=== PATIENT | female | born 1940 | race Caucasian/White ===

== ENCOUNTER 2024-03-25 07:52 | Emergency (ER) | payer OTHER, SELFPAY ==
[2024-03-25] VITALS (8 sets, daily range): BP systolic 130–178; BP diastolic 56–87; PULSE 71; O2SAT 98; BMI 20.8
--- NOTE | 2024-03-25 08:21 | ED.GENMED ---
History of Present Illness
General
Chief Complaint: Chest Pain
Source: patient
Time Seen by Provider: 03/25/24 08:01
History of Present Illness
History of Present Illness:
84-year-old female presents to the emergency room complaining of chest pain. Patient had woken up from sleep and noted the pain. She describes that her upper chest. She did have some shortness of breath at that time but no shortness of breath on
arrival. No diaphoresis. No nausea. Patient states that she has been able to perform daily activities without any difficulty. She denies exertional chest pain.
Past History
Past History
ED Past Medical History: Hypercholesterolemia and Hypothyroidism
ED Past Surgical History: Gynecological (Hysterectomy)
Patient has exhibited threatening behavior?: No
PSI?: No
Social History
Tobacco: Non-smoker
Alcohol: Occasional
Personal:
Living: with family
Phy Exam
Physical Exam
Physical Exam:
General: Awake, Alert, Oriented X3. No acute distress.
Vitals: Mildly hypertensive
Head: Atraumatic
Eyes: Pupils equal, EOMI
Throat: Airway intact, no exudates
Neck: Trachea midline
Lungs: Clear and equal b/l
Heart: Regular rate, no murmurs
Abd: Soft, Nontender, No pulsatile mass
Neuro: Nonfocal
Skin: Warm, dry, no rash
Extremities: pulses equal b/l, no edema
Scores
Heart Score for Chest Pain Patients
STEMI patient?: No
History: Moderately Suspicious
ECG: Normal
Age: >/= 65 years
Risk Factors: 1 or 2 Risk Factors
Troponin: </= Normal Limit
Heart Score for Chest Pain Patients: 4
Heart Score Risk: 20.3% MACE over next 6 weeks
Course
Orders/Labs/Results
Orders:
Orders
03/25/24 08:07
EKG [Electrocardiogram (*1)] Urgent
Reason for Study: Chest Pain
03/25/24 08:08
EKG- Treatment ONCE
03/25/24 08:19
CMP [Comprehensive Metabolic Panel] Urgent
Complete Blood Count/With Diff Urgent
Troponin I Urgent
03/25/24 08:21
CR Chest - 2 Views Urgent
Comment:
Reason For Exam: chest pain
03/25/24 09:39
Case Management Consult ONCE
Case Management Consult: Discharge Planning
Physical Therapy Consult [Pt Eval And Treat] Urgent
Activity Level: As Tolerated
03/25/24 11:00
Walker [Treatment- Walker] ONCE
03/25/24 11:30
EKG [Electrocardiogram (*1)] Urgent
Reason for Study: Chest Pain
Comment: 2nd Troponin
EKG- Treatment ONCE
03/25/24 11:36
Troponin I Urgent
Abnormal Lab Results
03/25/24
08:19
MPV 10.5 H fL
(7.4-10.4)
Absolute Lymphs (auto) 3.8 H 10^3/uL
(1.2-3.4)
Chloride 109 H mmol/L
(98-107)
Glucose 104 H mg/dl
(70-99)
03/25/24 08:19
03/25/24 08:19
Vital Signs
Initial and Last Documented VS:
Initial Vital Signs
BP
178/72
03/25/24 07:58
Last Documented Vital Signs
Temp Pulse Resp BP Pulse Ox
98.2 F 67 18 153/70 98
03/25/24 13:44 03/25/24 13:44 03/25/24 13:44 03/25/24 13:44 03/25/24 13:44
MDM/Problems Addressed
Differential Diagnosis Includes:
ACS, nstemi, ptx,
MDM/Problems Addressed:
Patient presents after an episode of chest pain. She is pain-free at the time of my evaluation. Patient has seen Dr. Hossein Morales for cardiology in the past. Her troponins are negative x 2. No acute changes to the EKG. Patient stable for
discharge home and follow-up with cardiology as an outpatient.
*Radiology
Radiology exam reviewed: preliminary read by ED provider (No acute abnormalities on my personal review of the patient's chest x-ray)
*Pulse Oximetry
Patient hypoxic: no
*EKG
Interpreted by ED Provider?: Yes
Heart Rate: 72
Rate: normal
Rhythm: sinus
[place]: normal axis
Interval: normal interval
QRS Pattern: normal QRS
Ischemia: no ischemia
*Litigation Support Analyst Interpretation
Rate: normal
Interpretation: normal
Rhythm: sinus
*Critical Care Note
Total Time (30-74mins, 75-104mins- exclusive of procedures): Not Applicable
ED Attending Note
-
Portions of this chart may have been created with voice recognition software.� Occasional wrong word or��sound alike� substitutions may have occurred due to the inherent limitations of voice recognition software.
Discharge Plan
Departure
Patient Disposition: Home (Routine Discharge)
Date of Disposition: 03/25/24
Time of Disposition: 13:25
Patient with high blood pressure during this ER visit?: Yes
Condition: Good
Discharge Problem:
Chest pain
Instructions: Chest Pain DCA Follow Up
Prescriptions:
No Action
atorvastatin 20 MG tablet
20 mg PO DAILY@1200
Patient Comments:
07/23/21-patient knew the names of his medicaiton but not the strength called his pharmacy to verify
cholecalciferol (vitamin D3) 1,000 UNITS tablet
1,000 units PO DAILY
levothyroxine 75 MCG tablet
75 mcg PO HS
Referrals:
UNKNOWN - PT DOES,NOT KNOW [Family Provider] -
Interventions
Interventions:
*Risk Screen - Suicide Last Done: 03/25/24 07:59
*General Assessment Last Done: 03/25/24 07:59
*Neglect/Abuse Screening Last Done: 03/25/24 07:59
ED- Fall Risk Assessment Last Done: 03/25/24 07:59
*ED COVID-19 Vaccine History Last Done: 03/25/24 07:59
*Nursing Disposition Last Done: 03/25/24 13:44
ED- Cardiac Assessment Last Done: 03/25/24 08:10
Discharge Date and Time
Print Language: SINHALA
[2024-03-25 08:32] LABS: % Basophils 0.3 % (0-2); % Eosinophils 2.4 % (0-6); % Immature Granulocytes 0.2 % (0-0.5); % Lymphocytes 42.8 % (20.5-51.1); % Monocytes 6.4 % (1.7-9.3); % Neutrophils 47.9 % (42.2-75.2); Absolute Eosinophils 0.2 10^3/uL (0-0.7); Absolute Lymphocytes 3.8 10^3/uL (1.2-3.4); Absolute Monocytes 0.6 10^3/uL (0.1-0.6); Absolute Neutrophils 4.3 10^3/uL (1.4-6.5); Hematocrit 39.4 % (37.0-47.0); Hemoglobin 13.1 g/dL (12.0-16.0); Mean Corp Hgb Conc. 33.2 g/dL (33.0-37.0); Mean Corpuscular Hgb 27.7 pg (27.0-31.0); Mean Corpuscular Volume 83.3 fL (81.0-99.0); Mean Platelet Volume 10.5 fL (7.4-10.4); Nucleated Red Blood Cells % 0 %; Platelet Count 209 10^3/uL (130-400); Red Blood Cell Count 4.73 10^6/uL (4.20-5.40); Red Cell Dist. Width 13.7 % (11.5-14.5); White Blood Cell Count 8.9 10^3/uL (4.8-10.8)
--- NOTE | 2024-03-25 08:40 | EDRN ---
Patient assisted to the bathroom. Patient stated that she does not use a cane or walker at home. Patient ambulated with unsteady shuffling gait. stated that the patient has been c/o 'exhausted and weak' with any activity. stated that
the PCP gave patient a prescription for PT but the patient won't go.
[2024-03-25 08:44] LABS: ALT (SGPT) 15 U/L (0-35); AST (SGOT) 24 U/L (14-36); Albumin 4.1 g/dl (3.5-5.0); Alkaline Phosphatase 121 U/L (38-126); Blood Urea Nitrogen 16 mg/dl (7-17); Calcium 9.2 mg/dl (8.4-10.2); Carbon Dioxide 26 mmol/L (22-30); Chloride 109 mmol/L (98-107); Estimated Creatinine Clearance 52 ml/min; Glucose 104 mg/dl (70-99); Sodium 144 mmol/L (135-145); Total Bilirubin 0.7 mg/dl (0.2-1.3); Total Protein 7.1 g/dl (6.3-8.2); eGFR > 60.00
[2024-03-25 08:56] LABS: Troponin I < 0.012 ng/ml
--- NOTE | 2024-03-25 10:16 | CM ---
Addendum entered by Chandni Ramirez RN 03/25/24 10:50:
CM spoke with patient and regarding home PT services. Plan for to call [facility] PT to schedule an in home visit. CM offered VN , declined. Patient was agreeable, but needed reminders regarding why she needs PT. CM updated
bedside RN.
Original Note:
CM was consulted for discharge planning. Patient lives at [facility] with her . PT in room now assessing patient. Plan for home VN once cleared.
[2024-03-25 12:12] LABS: Troponin I < 0.012 ng/ml
--- NOTE | 2024-03-25 13:42 | EDRN ---
Reviewed discharge instructions with patient's . Verbalized understanding.
== END 2024-03-25 13:50 | disposition home or self-care (01) ==
LOC: EMR 07:52
PROVIDERS: EMERGENCY PHYSICIAN Emergency Medicine
DX: R07.89 Other chest pain (principal); R06.02 Shortness of breath; R03.0 Elevated blood-pressure reading, without diagnosis of hypertension; E78.00 Pure hypercholesterolemia, unspecified; E03.9 Hypothyroidism, unspecified; Z88.0 Allergy status to penicillin; Z91.041 Radiographic dye allergy status
CPT/HCPCS: 99285; 71046; 80053; 84484; 85025; 93005

== ENCOUNTER 2024-10-22 00:23 | Emergency (ER) | payer OTHER, SELFPAY ==
[2024-10-22 00:27] VITALS: BP 188/71; BMI 21.4
--- NOTE | 2024-10-22 00:28 | ED.GENMED ---
History of Present Illness
General
Chief Complaint: Fall
Source: patient
Exam Limitations: none
Time Seen by Provider: 10/22/24 00:26
Nursing documentation reviewed up to this point in time: agreed with
History of Present Illness
History of Present Illness:
This is a 84-year-old for female with past medical history of hyperlipidemia, dementia, hypothyroidism who presents emergency department today with concerns of headache following a fall. Patient lives at [facility] in apartment
with her . According to EMS, she is confused at baseline. She reports that she has a headache in the front of her head and states that she does remember falling but she does not remember how. called EMS and told EMS that she was
getting up in the night to go use the bathroom when she tripped and fell. reports that he was sleeping and heard 'darwin help me' when he woke up and found her lying on the ground and he subsequently called EMS. Patient denies any neck pain,
dizziness, chest pain, shortness of breath, abdominal pain. She has no pain in her left knee and her did report to EMS that patient seems to have a limp in her left side which she always has but seems to be worse than usual. Patient does
not take any anticoagulants.
Past History
Past History
ED Past Medical History: Hypercholesterolemia and Hypothyroidism
ED Past Surgical History: Gynecological (Hysterectomy)
Patient has exhibited threatening behavior?: No
PSI?: No
Social History
Tobacco: Non-smoker
Alcohol: Occasional
Personal:
Living: with family
Review of Systems
Review of Systems
All Other Systems: ROS reviewed and negative except as documented in HPI and ROS
Phy Exam
Physical Exam
Physical Exam:
General: Patient is well appearing and in no acute distress; non-toxic
Skin: Scattered abrasions noted to the left forehead.
Head: See above. No tenderness palpation of the facial bones. TMJ joints intact bilaterally.
Eyes: Sclera non-icteric. EOMs intact.
Cardiac: Regular rate and rhythm, no murmurs, no tenderness palpation external chest wall
Peripheral Vascular: No lower extremity swelling or edema
Pulm: Normal respiratory effort, no wheezes, rales, rhonchi
Abdomen: No abdominal tenderness, no signs of trauma on the abdomen
Musculoskeletal: Bruising and swelling noted to the left knee. Some pain with left knee flexion. No pain left hip internal or external rotation, abduction or adduction.
Neuro: CN II-XII intact, no focal neurologic deficits.
Psychiatric: Appropriate mood and affect.
Course
Orders/Labs/Results
Orders:
Orders
10/22/24 00:37
CT Cervical Spine W/o Iv Contr Urgent
Comment:
Reason For Exam: midline spinal tenderness
CT Head W/o Iv Contrast Urgent
Comment:
Reason For Exam: headache following fall
10/22/24 00:38
CR Hip - LT w/wo Pel 2-3 Vw* Urgent
Comment:
Reason For Exam: left hip pain
Include a pelvis x-ray?: Yes
CR Knee - Left 4 Or More View* Urgent
Comment:
Reason For Exam: left knee pain
Vital Signs
Initial and Last Documented VS:
Initial Vital Signs
Temp Pulse Resp BP Pulse Ox
98.1 F 81 18 188/71 96
10/22/24 00:27 10/22/24 00:27 10/22/24 00:27 10/22/24 00:27 10/22/24 00:27
Last Documented Vital Signs
Temp Pulse Resp BP Pulse Ox
98.1 F 81 18 160/80 94
10/22/24 00:27 10/22/24 00:27 10/22/24 00:27 10/22/24 04:16 10/22/24 04:17
MDM/Problems Addressed
Differential Diagnosis Includes:
Differentials include tibial plateau fracture, knee contusion, concussion, subdural hematoma, epidural hematoma
MDM/Problems Addressed:
84-year-old female with past medical history of dementia, hypothyroidism, ambulatory dysfunction presents emergency department today with concerns of headache following a fall. present with patient reports that she heard her calling for his
help which woke him up from sleep and he noticed that she was lying on the floor. Here in the ER, patient is well-appearing no acute distress she does have scattered abrasions to the left forehead. Your CT scan of the head and neck was
unremarkable. She got x-rays of the knee and hip which did not show any evidence of acute fracture or dislocation. Patient did ambulate with our walker here without any pain. reports that she uses a walker at baseline and reports that she
does have troubles with imaging at baseline. Did recommend close follow-up with primary care and physical therapy evaluation. Patient stable for discharge.
Chronic conditions affecting care:
Dementia, hyperlipidemia
*Pulse Oximetry
Patient hypoxic: no
*Critical Care Note
Total Time (30-74mins, 75-104mins- exclusive of procedures): Not Applicable
Data Reviewed
Review of Other/Old Records Reveals: Records (Reviewed ER physician documentation from 03/25.4 patient seen for chest pain and was discharged, reviewed [facility] discharge summary to review)
Source: patient and records
Patient Management
Escalation/DeEscalation of care consider admission/obs:
admit not indicated, pt stable for discharge
Update Note
Update Note:
3:00 am--patient's headache and knee pain has resolved without intervention. CT of the head and cervical spine negative for any acute fracture or intracranial normality.
ED Attending Note
-
Portions of this chart may have been created with voice recognition software.� Occasional wrong word or��sound alike� substitutions may have occurred due to the inherent limitations of voice recognition software.
Discharge Plan
Departure
Patient Disposition: Home (Routine Discharge)
Date of Disposition: 10/22/24
Time of Disposition: 03:45
Patient with high blood pressure during this ER visit?: Yes
Condition: Good
Discharge Problem:
Fall, Knee pain
Instructions: Head Injury in Adults (DC), Preventing falls in adults, BLOOD PRESSURE
Prescriptions:
No Action
atorvastatin 20 MG tablet
20 mg PO DAILY@1200
Patient Comments:
07/23/21-patient knew the names of his medicaiton but not the strength called his pharmacy to verify
cholecalciferol (vitamin D3) 1,000 UNITS tablet
1,000 units PO DAILY
levothyroxine 75 MCG tablet
75 mcg PO HS
Referrals:
Micheline Matamoros MD [Family Provider] -
Activity Restrictions/Additional Instructions:
Your x-ray of the knee did not show any evidence of fracture. Your CT scan of the head and neck did not show any evidence of acute intracranial abnormality or fracture
Please call your primary care provider today to inquire about physical therapy.
PLEASE RETURN EMERGENCY DEPARTMENT TO DEVELOP AN ACUTE WORSENING OF YOUR SYMPTOMS, CHEST PAIN, SHORTNESS OF BREATH, INTRACTABLE NAUSEA OR VOMITING, FEVERS OR CHILLS, WEAKNESS ONE-SIDED BODY VERSUS OTHER, NUMBNESS OR TINGLING OR EXTREMITIES, URINARY
OR FECAL INCONTINENCE, OR ANY OTHER SIGNS OR SYMPTOMS WORRISOME TO YOU.
Interventions
Interventions:
*Risk Screen - Suicide Last Done: 10/22/24 00:27
*General Assessment Last Done: 10/22/24 00:27
*Neglect/Abuse Screening Last Done: 10/22/24 00:27
*Nursing Disposition Last Done: 10/22/24 04:42
ED-Musculoskeletal Assessment Last Done: 10/22/24 01:42
ED- Neurological Assessment Last Done: 10/22/24 00:39
ED-Skin Assessment Last Done: 10/22/24 00:38
Discharge Date and Time
Discharge Date/Time: 10/22/24 04:43
Print Language: CITIZEN OF [place]
[2024-10-22 04:16] VITALS: BP 160/80
== END 2024-10-22 04:43 | disposition home or self-care (01) ==
LOC: EMR 00:23
PROVIDERS: EMERGENCY PHYSICIAN Emergency Medicine; FAMILY PHYSICIAN Family Medicine
DX: M25.562 Pain in left knee (principal); W19.XXXA Unspecified fall, initial encounter; E78.00 Pure hypercholesterolemia, unspecified; E03.9 Hypothyroidism, unspecified; F03.90 Unspecified dementia, unspecified severity, without behavioral disturbance, psychotic disturbance, mood disturbance, and anxiety; Z60.2 Problems related to living alone; Z90.710 Acquired absence of both cervix and uterus
CPT/HCPCS: 99284; 70450; 72125; 73502; 73564

== ENCOUNTER → 2024-12-09 11:40 | Outpatient (REF) | payer OTHER, SELFPAY ==
[2024-12-09 12:59] LABS: % Basophils 0.3 % (0-2); % Eosinophils 1.9 % (0-6); % Immature Granulocytes 0.3 % (0-0.5); % Lymphocytes 28.9 % (20.5-51.1); % Monocytes 8.2 % (1.7-9.3); % Neutrophils 60.4 % (42.2-75.2); Absolute Eosinophils 0.1 10^3/uL (0-0.7); Absolute Lymphocytes 2.1 10^3/uL (1.2-3.4); Absolute Monocytes 0.6 10^3/uL (0.1-0.6); Absolute Neutrophils 4.4 10^3/uL (1.4-6.5); Hematocrit 35.3 % (37.0-47.0); Hemoglobin 11.3 g/dL (12.0-16.0); Mean Corpuscular Hgb 28.2 pg (27.0-31.0); Mean Platelet Volume 11.2 fL (7.4-10.4); Nucleated Red Blood Cells % 0 %; Platelet Count 192 10^3/uL (130-400); Red Blood Cell Count 4.01 10^6/uL (4.20-5.40); Red Cell Dist. Width 13.5 % (11.5-14.5); White Blood Cell Count 7.3 10^3/uL (4.8-10.8)
[2024-12-09 13:12] LABS: ALT (SGPT) 13 U/L (0-35); AST (SGOT) 18 U/L (14-36); Albumin 3.4 g/dl (3.5-5.0); Alkaline Phosphatase 92 U/L (38-126); Blood Urea Nitrogen 16 mg/dl (7-17); Calcium 8.4 mg/dl (8.4-10.2); Carbon Dioxide 27 mmol/L (22-30); Chloride 111 mmol/L (98-107); Glucose 91 mg/dl (70-99); HDL Cholesterol 48 mg/dl; LDL Cholesterol, Calculated 59 mg/dl; Potassium 3.9 mmol/L (3.5-5.1); Sodium 142 mmol/L (135-145); Total Bilirubin 0.6 mg/dl (0.2-1.3); Total Cholesterol 119 mg/dl (50-199); Total Protein 6.1 g/dl (6.3-8.2); Triglyceride 63 mg/dl (10-149); Very Low Density Lipoprotein 12 mg/dl (0-30); eGFR > 60.00
[2024-12-09 15:01] LABS: Vitamin D, 25-OH*** 28.1 ng/mL (30-80)
[2024-12-09 15:15] LABS: TSH Reflex To Free T4 1.81 uIU/ml (0.47-4.68)
[2024-12-09 15:51] LABS: Folate 5.7 ng/ml (2.76-20); Vitamin B12 195 pg/ml (239-931)
== END ==
LOC: OLABPG 11:40
PROVIDERS: ATTENDING PHYSICIAN Nurse Practitioner Acute Care
DX: E03.9 Hypothyroidism, unspecified (principal); E78.00 Pure hypercholesterolemia, unspecified; F03.918 Unspecified dementia, unspecified severity, with other behavioral disturbance; E55.9 Vitamin D deficiency, unspecified
CPT/HCPCS: 36415; 80053; 80061; 82306; 82607; 82746; 84443; 85025

== ENCOUNTER → 2024-12-25 10:35 | Outpatient (REF) | payer OTHER, SELFPAY ==
[2024-12-25 11:25] LABS: % Basophils 0.2 % (0-2); % Eosinophils 0.2 % (0-6); % Immature Granulocytes 0.3 % (0-0.5); % Lymphocytes 12.8 % (20.5-51.1); % Monocytes 6.7 % (1.7-9.3); % Neutrophils 79.8 % (42.2-75.2); Absolute Lymphocytes 1.5 10^3/uL (1.2-3.4); Absolute Monocytes 0.8 10^3/uL (0.1-0.6); Absolute Neutrophils 9.2 10^3/uL (1.4-6.5); Hematocrit 37.1 % (37.0-47.0); Hemoglobin 12.1 g/dL (12.0-16.0); Mean Corp Hgb Conc. 32.6 g/dL (33.0-37.0); Mean Corpuscular Hgb 27.9 pg (27.0-31.0); Mean Corpuscular Volume 85.5 fL (81.0-99.0); Mean Platelet Volume 11.1 fL (7.4-10.4); Nucleated Red Blood Cells % 0 %; Platelet Count 235 10^3/uL (130-400); Red Blood Cell Count 4.34 10^6/uL (4.20-5.40); Red Cell Dist. Width 13.2 % (11.5-14.5); White Blood Cell Count 11.6 10^3/uL (4.8-10.8)
[2024-12-25 11:26] LABS: ALT (SGPT) 21 U/L (0-35); AST (SGOT) 34 U/L (14-36); Albumin 3.6 g/dl (3.5-5.0); Alkaline Phosphatase 123 U/L (38-126); Blood Urea Nitrogen 16 mg/dl (7-17); Calcium 8.8 mg/dl (8.4-10.2); Carbon Dioxide 24 mmol/L (22-30); Chloride 108 mmol/L (98-107); Glucose 117 mg/dl (70-99); HDL Cholesterol 60 mg/dl; LDL Cholesterol, Calculated 68 mg/dl; Potassium 3.6 mmol/L (3.5-5.1); Sodium 139 mmol/L (135-145); Total Bilirubin 0.7 mg/dl (0.2-1.3); Total Cholesterol 141 mg/dl (50-199); Total Protein 6.4 g/dl (6.3-8.2); Triglyceride 65 mg/dl (10-149); Very Low Density Lipoprotein 13 mg/dl (0-30); eGFR > 60.00
[2024-12-25 11:44] LABS: Vitamin D, 25-OH*** 23.8 ng/mL (30-80)
[2024-12-25 11:57] LABS: TSH 2.31 uIU/ml (0.47-4.68)
[2024-12-25 12:33] LABS: Folate 7.5 ng/ml (2.76-20); Vitamin B12 205 pg/ml (239-931)
== END ==
LOC: OLABPG 10:35
PROVIDERS: ATTENDING PHYSICIAN Nurse Practitioner Gerontology
DX: E06.3 Autoimmune thyroiditis (principal); E78.2 Mixed hyperlipidemia; E55.9 Vitamin D deficiency, unspecified; E53.8 Deficiency of other specified B group vitamins; R53.1 Weakness; Z91.81 History of falling
CPT/HCPCS: 36415; 80053; 80061; 82306; 82607; 82652; 82746; 84443; 85025

== ENCOUNTER 2025-01-24 17:09 | Emergency (ER) | payer OTHER, SELFPAY ==
[2025-01-24 17:18] VITALS: BP 141/71
[2025-01-24 17:33] LABS: Hematocrit 38.7 % (37.0-47.0); Hemoglobin 12.7 g/dL (12.0-16.0); Mean Corp Hgb Conc. 32.8 g/dL (33.0-37.0); Mean Corpuscular Volume 86.4 fL (81.0-99.0); Nucleated Red Blood Cells % 0 %; Platelet Count 251 10^3/uL (130-400); Red Cell Dist. Width 14.3 % (11.5-14.5)
[2025-01-24 17:49] LABS: ALT (SGPT) 21 U/L (0-35); AST (SGOT) 22 U/L (14-36); Albumin 4.1 g/dl (3.5-5.0); Alkaline Phosphatase 110 U/L (38-126); Blood Urea Nitrogen 16 mg/dl (7-17); Calcium 9.4 mg/dl (8.4-10.2); Carbon Dioxide 25 mmol/L (22-30); Chloride 109 mmol/L (98-107); Glucose 107 mg/dl (70-99); Potassium 4.0 mmol/L (3.5-5.1); Sodium 141 mmol/L (135-145); Total Protein 7.3 g/dl (6.3-8.2); eGFR > 60.00
--- NOTE | 2025-01-24 18:40 | ED.GENMED ---
History of Present Illness
General
Chief Complaint: Chest Pain
Source: patient, spouse and family (Daughter)
Time Seen by Provider: 01/24/25 18:40
History of Present Illness
History of Present Illness:
Patient is a moderately poor historian based on her dementia history. She has no complaints at this time. She did recall having some chest discomfort vague in nature earlier and apparently has been having some intermittent abdominal vague symptoms
the last week. No vomiting. Appetite good no shortness of breath no fever no other complaints. Chest pain history is poor. However does not appear to be exertional no radiation no other symptoms
Past History
Past History
ED Past Medical History: Hypercholesterolemia and Hypothyroidism
ED Past Surgical History: Gynecological (Hysterectomy)
Patient has exhibited threatening behavior?: No
PSI?: No
Social History
Tobacco: Non-smoker
Alcohol: Occasional
Personal:
Living: with family
Review of Systems
Review of Systems
All Other Systems: Not applicable
Respiratory: Reports no symptoms
ABD/GI: Denies vomiting or diarrhea
Phy Exam
Physical Exam
Physical Exam:
GENERAL: Alert. Cognitively delayed. Poor memory.
EYE: Orbits normal.
NECK: Supple, no significant adenopathy.
ENT: Pharynx without erythema
CARDIAC: Regular rate and rhythm without any obvious murmurs.
LUNGS: Clear breath sounds,normal
ABDOMEN: Soft, without focal tenderness or distention
NEUROLOGICAL: Alert. Grossly nonfocal
SKIN: Warm and dry, no rash or lesion, no discoloration, skin intact.
MUSCULOSKELETAL: No edema,no deformity.Good color
PSYCH: Normal and appropriate interaction.
Scores
Heart Score for Chest Pain Patients
STEMI patient?: No
History: Slightly or Non-Suspicious
ECG: Nonspecific Repolarization
Age: >/= 65 years
Risk Factors: 1 or 2 Risk Factors
Troponin: </= Normal Limit
Heart Score for Chest Pain Patients: 4
Heart Score Risk: 20.3% MACE over next 6 weeks
Course
Orders/Labs/Results
Orders:
Orders
01/24/25 17:12
Electrocardiogram (*1) Urgent
Reason for Study: Chest Pain
EKG- Treatment ONCE
01/24/25 17:24
Complete Blood Count/With Diff Urgent
Comprehensive Metabolic Panel Urgent
Lipase Urgent
Comment: ADD ON
01/24/25 19:00
Add On- LAB Urgent
Tests Added?: lipase
01/24/25 19:01
CT Abd/pel Without Iv Or Oral Urgent
Reason For Exam: Recurrent vague mid abdominal pain
01/24/25 19:19
Troponin I Urgent
01/24/25 21:48
Electrocardiogram (*1) Stat
Reason for Study: Other
Other Reason for Exam: chest pain
EKG- Treatment ONCE
01/24/25 22:11
Troponin I Urgent
Abnormal Lab Results
01/24/25
17:24
MCHC 32.8 L g/dL
(33.0-37.0)
Abs Immat Gran (auto) 0.1 H 10^3/uL
(0-0.05)
Absolute Lymphs (auto) 4.7 H 10^3/uL
(1.2-3.4)
Chloride 109 H mmol/L
(98-107)
Glucose 107 H mg/dl
(70-99)
01/24/25 17:24
01/24/25 17:24
Vital Signs
Initial and Last Documented VS:
Initial Vital Signs
Temp Pulse Resp BP Pulse Ox
98.4 F 76 18 141/71 98
01/24/25 17:18 01/24/25 17:18 01/24/25 17:18 01/24/25 17:18 01/24/25 17:18
Last Documented Vital Signs
Temp Pulse Resp BP Pulse Ox
98.4 F 82 16 154/100 97
01/24/25 17:18 01/25/25 00:00 01/25/25 00:00 01/25/25 00:00 01/25/25 00:00
MDM/Problems Addressed
Differential Diagnosis Includes:
Patient with vague nonspecific abdominal symptoms this week with a benign exam at this time. Also some vague nonspecific chest discomfort earlier today currently with a benign exam. Will do cardiac testing x 2. Abdominal workup including labs and
CT scan.
*Radiology
Radiology exam reviewed: radiology read reviewed (Negative CT. Small central hiatal hernia. Distention of the rectum but no stercoral colitis)
*Pulse Oximetry
SaO2: 98
Oxygen Mode of Delivery: Room air
Patient hypoxic: no
*EKG
Interpreted by ED Provider?: Yes
Interpretation: abnormal
Comparison EKG: changes noted
Heart Rate: 75
Rate: normal
Rhythm: sinus
[place]: normal axis
Interval: normal interval
QRS Pattern: normal QRS
Ischemia: non-specific ST changes
*Critical Care Note
Total Time (30-74mins, 75-104mins- exclusive of procedures): Not Applicable
Data Reviewed
Review of Other/Old Records Reveals: Labs, Records and Testing
Update Note
Update Note:
Repeat EKG unchanged and nonspecific changes. Patient has remained asymptomatic and nontoxic. No symptoms while here
ED Attending Note
-
Portions of this chart may have been created with voice recognition software.� Occasional wrong word or��sound alike� substitutions may have occurred due to the inherent limitations of voice recognition software.
Discharge Plan
Departure
Patient Disposition: Home (Routine Discharge)
Date of Disposition: 01/24/25
Time of Disposition: 23:52
Patient with high blood pressure during this ER visit?: Yes
Discharge Problem:
Transient chest and abdominal pain, Resolved
Instructions: Chest pain - Discharge instructions, Abdominal pain in adults - ED discharge instructions, BLOOD PRESSURE
Prescriptions:
No Action
atorvastatin 20 MG tablet
20 mg PO DAILY@1200
Patient Comments:
07/23/21-patient knew the names of his medicaiton but not the strength called his pharmacy to verify
cholecalciferol (vitamin D3) 1,000 UNITS tablet
1,000 units PO DAILY
levothyroxine 75 MCG tablet
75 mcg PO HS
Referrals:
UNKNOWN - PT DOES,NOT KNOW [Family Provider]
Activity Restrictions/Additional Instructions:
Follow-up with her physician earlier in the week
Interventions
Interventions:
*Risk Screen - Suicide Last Done: 01/24/25 19:23
*General Assessment Last Done: 01/24/25 19:23
*Neglect/Abuse Screening Last Done: 01/24/25 19:23
*ED- Fall Risk Assessment Last Done: 01/24/25 19:23
*ED COVID-19 Vaccine History Last Done: 01/24/25 19:23
ED- Cardiac Assessment Last Done: 01/24/25 19:23
Discharge Date and Time
Print Language: DJIBOUTIAN
[2025-01-24 18:43] VITALS: BP 167/66
[2025-01-24 19:00] VITALS: BP 156/80
[2025-01-24 19:23] VITALS: BMI 18.8
[2025-01-24 19:32] LABS: Lipase 170 U/L (23-300)
[2025-01-24 19:48] LABS: Troponin I < 0.012 ng/ml
[2025-01-24 22:12] VITALS: BP 138/56
[2025-01-24 22:46] LABS: Troponin I < 0.012 ng/ml
[2025-01-24 23:00] VITALS: BP 123/56
[2025-01-25] VITALS (7 sets, daily range): BP systolic 126–157; BP diastolic 51–100
== END 2025-01-25 09:50 | disposition home or self-care (01) ==
LOC: EMR 17:09
PROVIDERS: Student in an Organized Health Care Education/Training Program; EMERGENCY PHYSICIAN Emergency Medicine
DX: R07.89 Other chest pain (principal); R10.9 Unspecified abdominal pain; F03.B0 Unspecified dementia, moderate, without behavioral disturbance, psychotic disturbance, mood disturbance, and anxiety; R03.0 Elevated blood-pressure reading, without diagnosis of hypertension
CPT/HCPCS: 99285; 74176; 80053; 83690; 84484; 85025; 93005

== ENCOUNTER 2025-05-16 21:53 | Inpatient (IN) | payer OTHER, SELFPAY ==
[2025-05-16] VITALS (7 sets, daily range): BP systolic 139–177; BP diastolic 63–97; BMI 20.1
[2025-05-16 18:26] LABS: Hematocrit 37.1 % (37.0-47.0); Hemoglobin 11.8 g/dL (12.0-16.0); Mean Corp Hgb Conc. 31.8 g/dL (33.0-37.0); Mean Corpuscular Volume 89.2 fL (81.0-99.0); Platelet Count 234 10^3/uL (130-400); Red Cell Dist. Width 12.8 % (11.5-14.5)
[2025-05-16 18:40] LABS: ALT (SGPT) 21 U/L (0-35); AST (SGOT) 22 U/L (14-36); Albumin 4.1 g/dl (3.5-5.0); Alkaline Phosphatase 118 U/L (38-126); Blood Urea Nitrogen 18 mg/dl (7-17); Calcium 9.1 mg/dl (8.4-10.2); Carbon Dioxide 24 mmol/L (22-30); Chloride 109 mmol/L (98-107); Estimated Creatinine Clearance 41 ml/min; Glucose 114 mg/dl (70-99); Potassium 4.3 mmol/L (3.5-5.1); Sodium 141 mmol/L (135-145); Total Protein 7.1 g/dl (6.3-8.2); eGFR > 60.00
[2025-05-16 18:42] LABS: Nucleated Red Blood Cells % 0 %
--- NOTE | 2025-05-16 19:48 | ED.GENMED ---
History of Present Illness
<Ana Cristina Henriquez PA-C - Last Filed: 05/17/25 03:50>
General
Chief Complaint: Fall
Source: family and snf
Exam Limitations: dementia
Time Seen by Provider: 05/16/25 19:20
Nursing documentation reviewed up to this point in time: agreed with
History of Present Illness
History of Present Illness:
Patient is an 85-year-old female with history dementia who presents to the emergency department from nursing facility after unwitnessed fall. Patient unable to contribute to history given history dementia. I did contact patient's nurse from
facility who states that patient was walking to the dining abdi when she left her walker in the hallway and attempted to walk independently. She tripped and fell landing on her right hip. They do not believe she struck her head. Patient was
experiencing significant pain in her right hip and unable to ambulate. Patient was not complaining of any other discomfort.
Nurse states that this very much seems to be a mechanical fall and she did not lose consciousness.
Patient is not on any oral anticoagulation.
Past History
<Ana Cristina Henriquez PA-C - Last Filed: 05/17/25 03:50>
Past History
ED Past Medical History: Hypercholesterolemia and Hypothyroidism
ED Past Surgical History: Gynecological (Hysterectomy)
Patient has exhibited threatening behavior?: No
PSI?: No
Social History
Tobacco: Non-smoker
Alcohol: Occasional
Personal:
Living: with family
Review of Systems
<Ana Cristina Henriquez PA-C - Last Filed: 05/17/25 03:50>
Review of Systems
Allergies reviewed?: Yes
All Other Systems: ROS reviewed and negative except as documented in HPI and ROS
Phy Exam
<Ana Cristina Henriquez PA-C - Last Filed: 05/17/25 03:50>
Physical Exam
Physical Exam:
Vitals: Hypertensive, otherwise vital signs stable. Afebrile
General: Patient is uncomfortable appearing due to pain.
Skin: Warm and dry, no rashes or lesions
Head: Normocephalic, atraumatic
Eyes: Sclera nonicteric.
Throat: Protecting airway
Neck: Normal ROM, no cervical spine tenderness
Cardiac: Regular rate and rhythm, no murmurs.
Pulm: Normal respiratory effort. Lungs clear
Abdomen: Abdomen soft and nontender.
Extremities: Right lower extremity shortened and externally rotated. Tenderness over right hip. 2+ DP palpable pulse in RLE. Left lower extremity and bilateral upper extremities atraumatic and nontender.
Neuro: AAOx1. No focal deficits.
Psychiatric: Normal affect.
Course
<Ana Cristina Henriquez PA-C - Last Filed: 05/17/25 03:50>
Orders/Labs/Results
Orders:
Orders
05/16/25 18:11
CMP [Comprehensive Metabolic Panel] Urgent
Complete Blood Count/With Diff Urgent
05/16/25 19:03
Hip, Right 2-3 Views [CR Hip - RT w/wo Pel 2-3 Vw*] Urgent
Comment:
Reason For Exam: right hip pain after fall
Include a pelvis x-ray?: Yes
05/16/25 19:28
Electrocardiogram (*1) Urgent
Reason for Study: Fatigue / Weakness
CT Head W/o Iv Contrast Urgent
Comment:
Reason For Exam: unwitnessed fall
Cervical Spine wo Contrast CT [CT Cervical Spine W/o Iv Contr] Urgent
Comment:
Reason For Exam: unwitnessed fall
EKG- Treatment ONCE
05/16/25 19:48
Morphine Sulfate 2 mg IV NOW STA
05/16/25 21:17
EKG [Electrocardiogram (*1)] Urgent
Reason for Study: PreOp
05/16/25 21:26
Admit/Transfer Patient As Directed
Co-Sign Provider:
Level of Care: Inpatient admission
Assign to:: Telemetry
Physician / Group: Nargis/Hospitalist
Diagnosis: right femoral neck fracture
Reason for Telemetry: Arrhythmia
Date to Stop Telemetry: 05/19/25
Time to Stop Telemetry: 11:00
Reason for Hospitalization: Right femoral neck fracture
Expected length of stay greater than two midnights?: Yes
ELOS- Estimated Length of Stay in days: 3
I certify the patient meets the requirements for IP care: Yes
05/16/25 21:28
Code Status As Directed
Resuscitation Status: Do not resuscitate
Based on pt advanced directive or healthcare POA form: Yes
05/16/25 21:29
DNR Bracelet Application ONCE
05/16/25 21:36
Morphine Sulfate 2 mg IV NOW STA
05/16/25 23:20
0.9% Sodium Chloride 1000 ml [Nss] 1,000 ml IV 80 mls/hr
Docusate Sodium [Colace] 100 mg PO BID
HYDROmorphone [Dilaudid] 0.25 mg IV Q1HPRN PRN
Magnesium Hydroxide [Milk of Magnesia] 30 ml PO DAILYPRN PRN
Oxycodone [Roxicodone] 10 mg PO Q4HPRN PRN
Oxycodone [Roxicodone] 5 mg PO Q4HPRN PRN
Sennosides [Senokot] 17.2 mg PO BID
Tamsulosin [Flomax] 0.4 mg PO DAILYPRN PRN
05/16/25 23:20
ORTHOPEDIC CONSULT Routine
Consulting Provider: Garfield Gallegos
Was physician already notified: Yes
Reason for consult: right femoral neck fracture s/p mechanical fall
Activity As Directed
Activity Level: Bedrest
Bladder Scan As Directed
Follow Bladder Retention/Intermittent Cath Algorithm?: Yes
PRN if no void in __ hours: 6
Comment: if not voiding 6 hrs upon arrival to floor, bladder scan & follow algorithm
Intake/ Output As Directed
Frequency: Per unit guidelines
Pneumatic Compression Sleeves As Directed
Type: Knee high
Straight Cath As Directed
Frequency: Per Retention Algorithm
Additional Instructions: straight cath as needed per acute urinary retention algorithm for 24 hrs
Additional Instructions: for bladder scan greater than 400 mL
Vital Signs As Directed
Frequency: Per unit guidelines
Pt Eval And Treat Routine
Treatment: Eval and treat after Ortho Surgery for fem neck fracture
Activity Level: With Assistance
DX Deep Vein Thrombosis Video Routine
05/17/25 00:00
Acetaminophen [Tylenol] 650 mg PO Q4HWA
05/17/25 Breakfast
NPO
Allow oral meds: No
Allow clear liquids: No
Prothrombin Time IN AM
Levothyroxine [Synthroid] 75 mcg PO DAILY@0600
05/17/25 07:00
CeFAZolin 2 GRAM [Ancef] 2 grams in 10 ml IV PRE PROCEDURE
Povidone Iodine 10% Solution [Povidone Iodine 10%] 114 ml 0.9% Sod Chloride 3000 ml Irr [Nss Irrigation Bag] 3,000 ml IRRIG OR
05/17/25 08:00
Sertraline HCl [Zoloft] 25 mg PO DAILY
05/19/25 11:00
DC Protocol for Telemetry ONCE
Abnormal Lab Results
05/16/25
18:11
RBC 4.16 L 10^6/uL
(4.20-5.40)
Hgb 11.8 L g/dL
(12.0-16.0)
MCHC 31.8 L g/dL
(33.0-37.0)
MPV 10.5 H fL
(7.4-10.4)
Abs Immat Gran (auto) 0.1 H 10^3/uL
(0-0.05)
Absolute Lymphs (auto) 5.9 H 10^3/uL
(1.2-3.4)
Absolute Monos (auto) 0.7 H 10^3/uL
(0.1-0.6)
Immature Gran % 0.8 H %
(0-0.5)
Neutrophils % 34.7 L %
(42.2-75.2)
Lymphocytes % 55.8 H %
(20.5-51.1)
Chloride 109 H mmol/L
(98-107)
BUN 18 H mg/dl
(7-17)
Glucose 114 H mg/dl
(70-99)
05/16/25 18:11
05/16/25 18:11
Vital Signs
Initial and Last Documented VS:
Initial Vital Signs
BP
147/97
05/16/25 18:02
Last Documented Vital Signs
Temp Pulse Resp BP Pulse Ox
99.4 F 92 16 159/72 94
05/17/25 02:56 05/17/25 02:56 05/17/25 02:56 05/17/25 02:56 05/17/25 02:56
<Jody Guy MD - Last Filed: 05/16/25 22:37>
Orders/Labs/Results
Orders:
Orders
05/16/25 18:11
CMP [Comprehensive Metabolic Panel] Urgent
Complete Blood Count/With Diff Urgent
05/16/25 19:03
Hip, Right 2-3 Views [CR Hip - RT w/wo Pel 2-3 Vw*] Urgent
Comment:
Reason For Exam: right hip pain after fall
Include a pelvis x-ray?: Yes
05/16/25 19:28
Electrocardiogram (*1) Urgent
Reason for Study: Fatigue / Weakness
CT Head W/o Iv Contrast Urgent
Comment:
Reason For Exam: unwitnessed fall
Cervical Spine wo Contrast CT [CT Cervical Spine W/o Iv Contr] Urgent
Comment:
Reason For Exam: unwitnessed fall
EKG- Treatment ONCE
05/16/25 19:48
Morphine Sulfate 2 mg IV NOW STA
05/16/25 21:17
EKG [Electrocardiogram (*1)] Urgent
Reason for Study: PreOp
05/16/25 21:26
Admit/Transfer Patient As Directed
Co-Sign Provider:
Level of Care: Inpatient admission
Assign to:: Telemetry
Physician / Group: Nargis/Hospitalist
Diagnosis: right femoral neck fracture
Reason for Telemetry: Arrhythmia
Date to Stop Telemetry: 05/19/25
Time to Stop Telemetry: 11:00
Reason for Hospitalization: Right femoral neck fracture
Expected length of stay greater than two midnights?: Yes
ELOS- Estimated Length of Stay in days: 3
I certify the patient meets the requirements for IP care: Yes
05/16/25 21:28
Code Status As Directed
Resuscitation Status: Do not resuscitate
Based on pt advanced directive or healthcare POA form: Yes
05/16/25 21:29
DNR Bracelet Application ONCE
05/16/25 21:36
Morphine Sulfate 2 mg IV NOW STA
05/16/25 23:20
0.9% Sodium Chloride 1000 ml [Nss] 1,000 ml IV 80 mls/hr
Docusate Sodium [Colace] 100 mg PO BID
HYDROmorphone [Dilaudid] 0.25 mg IV Q1HPRN PRN
Magnesium Hydroxide [Milk of Magnesia] 30 ml PO DAILYPRN PRN
Oxycodone [Roxicodone] 10 mg PO Q4HPRN PRN
Oxycodone [Roxicodone] 5 mg PO Q4HPRN PRN
Sennosides [Senokot] 17.2 mg PO BID
Tamsulosin [Flomax] 0.4 mg PO DAILYPRN PRN
05/16/25 23:20
ORTHOPEDIC CONSULT Routine
Consulting Provider: Garfield Gallegos
Was physician already notified: Yes
Reason for consult: right femoral neck fracture s/p mechanical fall
Activity As Directed
Activity Level: Bedrest
Bladder Scan As Directed
Follow Bladder Retention/Intermittent Cath Algorithm?: Yes
PRN if no void in __ hours: 6
Comment: if not voiding 6 hrs upon arrival to floor, bladder scan & follow algorithm
Intake/ Output As Directed
Frequency: Per unit guidelines
Pneumatic Compression Sleeves As Directed
Type: Knee high
Straight Cath As Directed
Frequency: Per Retention Algorithm
Additional Instructions: straight cath as needed per acute urinary retention algorithm for 24 hrs
Additional Instructions: for bladder scan greater than 400 mL
Vital Signs As Directed
Frequency: Per unit guidelines
Pt Eval And Treat Routine
Treatment: Eval and treat after Ortho Surgery for fem neck fracture
Activity Level: With Assistance
DX Deep Vein Thrombosis Video Routine
05/17/25 00:00
Acetaminophen [Tylenol] 650 mg PO Q4HWA
05/17/25 Breakfast
NPO
Allow oral meds: No
Allow clear liquids: No
Prothrombin Time IN AM
Levothyroxine [Synthroid] 75 mcg PO DAILY@0600
05/17/25 07:00
CeFAZolin 2 GRAM [Ancef] 2 grams in 10 ml IV PRE PROCEDURE
Povidone Iodine 10% Solution [Povidone Iodine 10%] 114 ml 0.9% Sod Chloride 3000 ml Irr [Nss Irrigation Bag] 3,000 ml IRRIG OR
05/17/25 08:00
Sertraline HCl [Zoloft] 25 mg PO DAILY
05/19/25 11:00
DC Protocol for Telemetry ONCE
Abnormal Lab Results
05/16/25
18:11
RBC 4.16 L 10^6/uL
(4.20-5.40)
Hgb 11.8 L g/dL
(12.0-16.0)
MCHC 31.8 L g/dL
(33.0-37.0)
MPV 10.5 H fL
(7.4-10.4)
Abs Immat Gran (auto) 0.1 H 10^3/uL
(0-0.05)
Absolute Lymphs (auto) 5.9 H 10^3/uL
(1.2-3.4)
Absolute Monos (auto) 0.7 H 10^3/uL
(0.1-0.6)
Immature Gran % 0.8 H %
(0-0.5)
Neutrophils % 34.7 L %
(42.2-75.2)
Lymphocytes % 55.8 H %
(20.5-51.1)
Chloride 109 H mmol/L
(98-107)
BUN 18 H mg/dl
(7-17)
Glucose 114 H mg/dl
(70-99)
05/16/25 18:11
05/16/25 18:11
Vital Signs
Initial and Last Documented VS:
Initial Vital Signs
BP
147/97
05/16/25 18:02
Last Documented Vital Signs
Temp Pulse Resp BP Pulse Ox
99.4 F 92 16 159/72 94
05/17/25 02:56 05/17/25 02:56 05/17/25 02:56 05/17/25 02:56 05/17/25 02:56
<Ana Cristina Henriquez PA-C - Last Filed: 05/17/25 03:50>
MDM/Problems Addressed
Differential Diagnosis Includes:
Not limited to: Hip fracture, pelvic fracture, hip dislocation, femur fracture, intracranial hemorrhage, etc.
MDM/Problems Addressed:
85-year-old female with dementia presenting after fall at facility landing on right side. Unable to bear weight and describing significant right hip pain following fall. There is no history of known head strike or LOC. No oral anticoagulation.
Hypertensive otherwise vitals stable on arrival. On exam, patient appears uncomfortable secondary to pain with no evidence of head or neck trauma. No evidence of chest or abdominal trauma. Right lower extremity appears shortened and externally
rotated with tenderness over hip. RLE neurovascular intact.
Basic labs were sent prior to my evaluation without clinically significant abnormalities. Will obtain x-ray imaging of right hip/pelvis and CT imaging head/cervical spine given uncertain nature of fall. Will check EKG. Will treat pain.
Update: Hip x-ray reveals displaced right femoral neck fracture. CT head/cervical spine without acute findings. Discussed with orthopedics, Dr. Gallegos. Patient will require admission to hospital service with plan for OR with orthopedics
tomorrow. Patient and patient's family aware. Accepted to hospitalist service in stable condition.
Chronic conditions affecting care:
Dementia
Acute Exacerbation and/or Progression of Chronic Illness:
N/A
<Ana Cristina Henriquez PA-C - Last Filed: 05/17/25 03:50>
*Radiology
Radiology exam reviewed: preliminary read by ED provider (Right hip x-ray reviewed by nv-femoral neck fracture) and radiology read reviewed
*Pulse Oximetry
SaO2: 98
Oxygen Mode of Delivery: Room air
Patient hypoxic: no
*EKG
Interpreted by ED Provider?: Yes
EKG Intrepretation Date: 05/16/25
Interpretation: abnormal
Comparison EKG: no changes
Heart Rate: 75
Rate: normal
Rhythm: sinus
[place]: normal axis
Interval: normal QT interval
QRS Pattern: normal QRS
Ischemia: non-specific ST changes
*[employer] [place] [employer] Interpretation
Rate: [employer] [place] [employer]- N/A
*Critical Care Note
Total Time (30-74mins, 75-104mins- exclusive of procedures): Not Applicable
<Ana Cristina Henriquez PA-C - Last Filed: 05/17/25 03:50>
Patient Management
Discussion with other providers: Hospitalist and Induction Coordination Power Engineer (Case discussed with orthopedics)
ED Attending Note
<Ana Cristina Henriquez PA-C - Last Filed: 05/17/25 03:50>
-
Portions of this chart may have been created with voice recognition software.� Occasional wrong word or��sound alike� substitutions may have occurred due to the inherent limitations of voice recognition software.
<Jody Guy MD - Last Filed: 05/16/25 22:37>
ED Attending Note
Patient seen and examined by attending physician: Yes
I performed the substantive portion of visit, reviewed & personally made and approve the management plan that is documented in note by myself or MARYCARMEN.: Yes
ED Attending Note:
I have seen and evaluated the patient with a [id number] encounter. I have spoken to the [MARYCARMEN] and involved in the medical history, the physical exam, medical decision making.
Evaluation and management service: agree unless noted differently below.
Results interpretation: agree unless noted differently below.
85-year-old woman with history of dementia presenting to the emergency department after unwitnessed fall. Per snf patient attempted to walk independently fell landing on her right hip. She did not hit her head. She is not on blood
thinners. She was complaining of significant pain at her hip afterwards. She denies any pain elsewhere though history is hard given patient's dementia
GENERAL: no acute distress
HEENT: atraumatic, extraocular muscles intact, no signs of entrapment, dentition intact, no other obvious trauma
NECK: no midline tenderness, normal range of motion, no other obvious trauma
BACK: no midline tenderness, no other obvious trauma
CHEST: no tenderness, no flail segment, no subcutaneous emphysema, no other obvious trauma
LUNGS: clear to auscultation bilaterally
CARDIOVASCULAR: regular rate and rhythm
ABDOMEN: soft, non-tender, no masses, no other obvious trauma
PELVIS: Right sided tenderness to hip
EXTREMITIES: moving all extremities (able to wiggle right toes), distal pulses intact, no other obvious trauma
NEUROLOGIC: awake, alert x 3, no focal deficits
85-year-old woman presenting to the emergency department after an unwitnessed fall with right-sided hip pain. X-ray completed prior to my evaluation which per my interpretation is consistent with a comminuted fracture of the femoral neck. Given
patient's unwitnessed fall we will also proceed with CT scan of the head and neck. Patient will need admission
Discharge Plan
Departure
Patient Disposition: Admit
Date of Disposition: 05/16/25
Time of Disposition: 20:41
Presentation/result/management discussed w/ accepting MD/DO: Hospitalist
Discharge Problem:
Fracture of femoral neck, right, Fall
Interventions
Interventions:
*Risk Screen - Suicide Last Done: 05/16/25 23:36
*General Assessment Last Done: 05/16/25 17:59
*Neglect/Abuse Screening Last Done: 05/16/25 17:59
*ED- Fall Risk Assessment Last Done: 05/16/25 18:30
*ED COVID-19 Vaccine History Last Done: 05/16/25 18:30
*ED Influenza Vaccine History Last Done: 05/16/25 18:30
*Nursing Disposition Last Done: 05/16/25 22:43
ED-Musculoskeletal Assessment Last Done: 05/16/25 18:30
ED- Neurological Assessment Last Done: 05/16/25 17:59
ED-Skin Assessment Last Done: 05/16/25 17:59
Discharge Date and Time
Discharge Date/Time: 05/16/25 22:43
[2025-05-16] MEDS: MORPHINE SULFATE 2 MG IV ×2 (20:32→21:43)
--- NOTE | 2025-05-16 21:00 | HPS.HSE ---
Family Physician
-
Family Physician: Ryan Shane Sr., MD
Chief Complaint
-
Mechanical fall, right hip pain following the fall
History of Present Illness
Patient is an 85-year-old woman with past medical history significant for dementia, alcohol dependence in remission, vitamin B12 deficiency, hypothyroidism, hyperlipidemia, who presented to the hospital after mechanical fall resulting in severe
right hip pain. She was found to have a right displaced femoral neck fracture. Orthopedics was consulted from the emergency department and they have her on the OR schedule for tomorrow at 8 AM. In the emergency department she is unable to
contribute to the history secondary to her dementia. The ED provider contacted the patient's nurse from her facility who stated that the patient was walking to the dining abdi when she left her walker in the hallway and attempted to walk
independently, she tripped and fell landing on her right hip. They denied noting loss of consciousness nor striking her head. She is not on anticoagulation. I spoke to the patient's via phone, who is currently also speaking with
orthopedics regarding consent for surgery tomorrow morning.
Medical History
Past Medical History
Past Medical History: Reports Hypercholesterolemia, Hypothyroidism and Other
Additional Past Medical History:
B12 deficiency, alcohol dependence in remission, moderate dementia without behavioral disturbance
Past Surgical History: Reports Gynocological (Hysterectomy)
Social History
Tobacco: Non-smoker
Alcohol: Former
Living: [facility]
Family History
Family History: Not pertinent
Allergies / Home Medications
Allergies reflects when Allergies were last updated in [facility].
Home Medications with original date entered in [facility]
Allergy/Medication List:
Allergies
Allergy/AdvReac Type Severity Reaction Status Date / Time
Iodinated Contrast Media Allergy Severe 'shock' Verified 03/25/24 08:06
Penicillins Allergy Mild Rash Verified 03/25/24 08:06
Home Medications
atorvastatin 20 mg tablet 20 mg PO DAILY@1200 07/23/21
cholecalciferol (vitamin D3) 25 mcg (1,000 unit) tablet 1,000 units PO DAILY 07/23/21
levothyroxine 75 mcg tablet 75 mcg PO HS 07/23/21
Review of Systems
-
A 12 point ROS was completed and negative except as noted: Yes
Physical Exam
Vital Signs
Vital Signs
Temp Pulse Resp BP Pulse Ox
97.5 F 66 18 147/97 98
05/16/25 18:06 05/16/25 18:06 05/16/25 18:06 05/16/25 18:06 05/16/25 19:52
Physical Exam
General: Appears Chronically Ill (cachectic)
HEENT: NormoCephalic and Anicteric
Respiratory: Clear and Non Labored Respirations
Cardiac: S1/S2 and Regular Rhythm
GI: Soft, Non Tender and Non Distended
Musculoskeletal: No Clubbing, No Cyanosis and No Edema
Skin: Warm and Dry
Neuro: Awake, No Motor Deficits, Nonfocal/grossly intact and Other (baseline severe dementia)
Psych: Calm
Laboratory Results
-
05/16/25 18:11
05/16/25 18:11
Laboratory Results
Total Bilirubin 0.3 mg/dl (0.2-1.3) 05/16/25 18:11
AST 22 U/L (14-36) 05/16/25 18:11
ALT 21 U/L (0-35) 05/16/25 18:11
Alkaline Phosphatase 118 U/L (38-126) 05/16/25 18:11
Data Reviewed
-
Diagnostic Radiology: Report Reviewed by me (displaced fracture of the neck of the proximal right femur, osseous degenerative changes)
CT Scan: Report Reviewed by me (Preliminary radiology report CT of the head is no acute findings, C-spine multilevel degenerative changes with no acute fracture or dislocation)
Impression/Plan
-
IMPRESSION:
# Right femoral neck fracture status post mechanical fall, vitals are stable, respiratory status is stable, 97% oxygen saturation on room air
- Orthopedic consultation was placed from the emergency department, with plans to take the patient to the OR in the morning for surgical intervention of femoral neck fracture
- At this time, the patient does not have any acute medical issues other than the femoral neck fracture, which was due to a mechanical fall.
- Her EKG was personally reviewed, and does not show evidence for acute ischemic changes.
- She is medically stable and optimized for surgical intervention to take place tomorrow.
- NPO past midnight for surgery in the morning
- continue prn pain management, and will place on telemetry monitoring overnight to monitor the patient while on IV pain management
- start gentle IVF while NPO
- INR in am
-IV abx pre-op per surgery
Chronic medical conditions:
# Dementia, mental status is at baseline, discussed with patient's plan of care with her , who is aware of the plans for surgical intervention (and was speaking to Ortho for consent).
# Hypothyroidism - continue Synthroid
# Hyperlipidemia- does not appear to be on statin therapy at this time
# B12 deficiency - does not appear to be on B-12 currently, MCV 89.2, Hgb 11.8
# Continue Sertraline
DVT proph-hold anticoagulation, pending surgery, per Ortho, place SCDs
DNR/DNI
--- NOTE | 2025-05-16 22:55 | PTCARENOTE ---
Pt arrived to @[id number]. Transferred from stretcher to bed. Pt was shouting in pain, tense, rigid, and grimacing. Pt could not state name, place, or date of . Bed alarm placed and on. Pt made comfortable in bed. Pain medications administered.
Bed in lowest position. Care ongoing.
[2025-05-17] VITALS (13 sets, daily range): BP systolic 104–180; BP diastolic 63–86; PULSE 76; O2SAT 100
[2025-05-17] MEDS: DILAUDID 0.25 MG IV ×2 (00:06→20:12)
[2025-05-17] MEDS: NSS 1000 IV (00:07)
[2025-05-17] MEDS: SENOKOT PO ×2 (00:37→20:22)
[2025-05-17] MEDS: COLACE PO ×2 (00:37→20:22)
[2025-05-17] MEDS: TYLENOL PO ×4 (00:37→20:52)
[2025-05-17] MEDS: SYNTHROID PO (06:17)
--- NOTE | 2025-05-17 07:30 | CON.ORTHO ---
Documented by User: Courtney Cavazos PA-C 05/17/25 07:38
Consultation
-
Date/Time Consultation Requested: 05/16/2025
Date/Time Consultation Performed: 05/17/2025
Requesting Provider: Dr. Barillas
Performing Provider: Courtney Cavazos PA-C, for Dr. Garfield Gallegos
Reason for Consultation: Right femoral neck fracture
Consultation - Orthopedics
History
HPI: This is an 85-year-old female who presented to [facility] emergency department after sustaining a fall onto her right hip yesterday. She has a history of dementia and currently resides at [facility], the memory care unit at [facility] [place]
[facility]. History was obtained through chart review as well as discussion with her , Yaya, and her daughter, Madeline. She was apparently walking to the dining abdi yesterday when she attempted to walk without her walker. This resulted into the
fall, landing directly on her right hip. She was unable to ambulate following this and was brought to the emergency department where x-rays were taken and demonstrated a displaced femoral neck fracture. At baseline, she does utilize a walker as
well as a wheelchair to get around. She has been more deconditioned lately and per Madeline, has had a shuffling gait. Other than the dementia, she also has a history of hypothyroidism and hyperlipidemia. Of note, she does have an iodine allergy.
Per her , this was a topical allergy that resulted in a rash. He denies any prior issues with anesthesia or postoperative complications. Our orthopedic team was consulted and to discuss definitive management of her right hip fracture.
Past medical history: Dementia, hyperlipidemia, hypothyroidism.
Past surgical history: Hysterectomy.
Social history: Denies recent alcohol use, denies tobacco use. Lives in memory care unit at [facility], [place]. Uses walker and wheelchair at baseline.
Family history: Noncontributory.
Review of systems: Unable to obtain due to demented status.
Allergies / Home Medications
Allergy/AdvReac Type Severity Reaction Status Date / Time
iodine Allergy Severe shock Verified 05/17/25 00:47
Penicillins Allergy Mild Rash Verified 03/25/24 08:06
�Medication �Instructions �Recorded
cholecalciferol (vitamin D3) 25 1,000 units PO DAILY 07/23/21
mcg (1,000 unit) tablet
levothyroxine 75 mcg tablet 75 mcg PO HS 07/23/21
sertraline 25 mg PO DAILY 05/17/25
Vital Signs / Lab Results
Temp Pulse Resp BP Pulse Ox
97.7 F 80 18 144/74 98
05/17/25 07:10 05/17/25 07:10 05/17/25 07:10 05/17/25 07:10 05/17/25 07:10
05/16/25 18:11
05/16/25 18:11
Physical examination:
General: Well-developed, well-nourished female in no acute distress at rest. Oriented to self only.
HEENT: Atraumatic, normocephalic. Neck supple.
Lungs: Nonlabored breathing on room air.
Heart: Regular rate and rhythm.
Right hip: Mild swelling. No significant tenderness to palpation. Range of motion not tested due to known fracture. Right leg is shortened and externally rotated. Calf is soft and nontender to palpation. Neurovascular intact distally.
Radiographic studies:
X-rays of the right hip from 05/16/2025 shows evidence of a displaced femoral neck fracture. Osseous degenerative changes also noted.
Assessment / Plan
Assessment: Right displaced femoral neck fracture.
Plan: Unfortunately, Yudy sustained a displaced femoral neck fracture during her fall yesterday. I had a lengthy discussion with both her , Yaya, and her daughter, Madeline, in regards to treatment recommendations. At this time,
recommendation is to proceed with a right hip bipolar endoprosthesis under the direction of Dr. Gallegos. The plan is to proceed with surgery later this morning, 05/17/2025. The surgery was explained in detail along with the associated risk,
benefits, and recovery process. Surgical and blood transfusion consents were obtained and placed in the patient's chart. Both Madeline and Yaya consented to the procedure. IV antibiotics and irrigation are on-call to the OR. She has been n.p.o.
She will likely require a short stay at the SNF portion of [facility], [place] prior to returning to the memory care unit. She has been deemed medically stable to proceed with surgery as planned. Postoperatively, we will place her on aspirin 325 mg p.o.
daily for DVT prophylaxis. All questions were answered and patient's family was in agreement with treatment recommendations at this time.

Documented by User: Garfield Gallegos MD 05/17/25 07:51
Consultation - Orthopedics
History
Patient seen and evaluated by Dr. Garfield Gallegos. Patient with displaced right femoral neck fracture for bipolar endoprosthesis on Saturday, May 17, 2025.
HPI: This is an 85-year-old female who presented to [facility] emergency department after sustaining a fall onto her right hip yesterday. She has a history of dementia and currently resides at [facility], the memory care unit at [facility]. History was obtained through chart review as well as discussion with her , Yaya, and her daughter, Madeline. She was apparently walking to the dining abdi yesterday when she attempted to walk without her walker. This resulted into the
fall, landing directly on her right hip. She was unable to ambulate following this and was brought to the emergency department where x-rays were taken and demonstrated a displaced femoral neck fracture. At baseline, she does utilize a walker as
well as a wheelchair to get around. She has been more deconditioned lately and per Madeline, has had a shuffling gait. Other than the dementia, she also has a history of hypothyroidism and hyperlipidemia. Of note, she does have an iodine allergy.
Per her , this was a topical allergy that resulted in a rash. He denies any prior issues with anesthesia or postoperative complications. Our orthopedic team was consulted and to discuss definitive management of her right hip fracture.
Past medical history: Dementia, hyperlipidemia, hypothyroidism.
Past surgical history: Hysterectomy.
Social history: Denies recent alcohol use, denies tobacco use. Lives in memory care unit at [facility], [place]. Uses walker and wheelchair at baseline.
Family history: Noncontributory.
Review of systems: Unable to obtain due to demented status.
[2025-05-17 08:50] LABS: INR 0.99; PT 13.4 Sec (11.4-14.6)
--- NOTE | 2025-05-17 10:39 | W.PN.HOSP.TC ---
Today's Communication/Plan
-
see bold
Assessment / Plan
Assessment / Plan
HPI: 85-year-old woman with past medical history significant for dementia, alcohol dependence in remission, vitamin B12 deficiency, hypothyroidism, hyperlipidemia, who presented to the hospital after mechanical fall resulting in severe right hip
pain. She was found to have a right displaced femoral neck fracture.
# Right femoral neck fracture status post mechanical fall
Appreciate orthopedic surgery input, status post ORIF 05/17
Pain control, PT/OT, laxatives
# Dementia
Mental status is at baseline
Resides at [facility]
# Hypothyroidism
Continue Synthroid
# Hyperlipidemia
Does not appear to be on statin therapy at this time
# B12 deficiency
Does not appear to be on B-12 currently, MCV 89.2, Hgb 11.8
# Anxiety/depression
Continue Sertraline
DVT proph-aspirin 325 mg daily as per orthopedic surgery
DNR/DNI confirmed with family upon admission
Updated family at bedside 05/17
Total time spent to see the patient on the floor, examine the patient, review data and lab results, discuss treatment plan with patient, nursing staff around 36 minutes.
Physical Exam
General: No acute distress
HEENT: Normocephalic, Atraumatic, EOMI, MMM
Respiratory: Clear to Auscultation bilaterally
Cardiac: Normal S1/S2, Regular Rate and Rhythm
GI: Soft, Nontender, Nondistended, Normal Bowel Sounds
Extremities: No Clubbing, Cyanosis
R hip incision dressed
Neuro: Pleasantly confused
Psych: Calm, Cooperative
Derm: Scattered ecchymosis on skin
Anticipated Discharge: 24 - 48 hours
Subjective/Interval History
-
Date of Service: May 17, 2025
Patient seen and examined after her surgery. She is just waking up, and feels groggy. Reports that her right hip pain is minimal. Denies chest pain, denies shortness of breath. No fever, no vomiting.
Objective Data
-
Labs:
Laboratory Results
05/17/25
06:58
PT Pending
INR Pending
Vital Signs:
Vital Signs
Temp Pulse Resp BP Pulse Ox
97.7 F 80 18 144/74 98
05/17/25 07:10 05/17/25 07:10 05/17/25 07:10 05/17/25 07:10 05/17/25 07:10
I&O
05/16/25 05/17/25 05/18/25
06:59 06:59 06:59
Intake Total 560 / 560
Balance 560 / 560
[2025-05-17] MEDS: MORPHINE SULFATE 1 MG IV ×2 (10:44→10:54)
--- NOTE | 2025-05-17 11:25 | PTCARENOTE ---
Pt received from the PACU via bed. Transport was w/o incident. Pt is Awake, alert w/ confusion.VSS, Pt is afebrile. Pt unable to use a bedpan. Pt transferred w/ difficulty X2 to bedside commode. Pt was successful in voiding 400mls of urine. Pt
transferred back to bed. Pt's Right thigh/hip area with a Primaseal (antibacterial )dressing w/ scant to small amount of bloody drainage noted. Pt's daughter and instructed on plan of care. Both family members verbalized understanding of
instructions. Pt is oriented to self, unable to retain information regarding her current hospital stay. Bed alarm maintained for safety. Call machado is within reach.
[2025-05-17] MEDS: SENOKOT 17.2 MG PO (13:02)
[2025-05-17] MEDS: COLACE 100 MG PO (13:02)
[2025-05-17] MEDS: ZOLOFT 25 MG PO (13:02)
[2025-05-17] MEDS: ROXICODONE 5 MG PO (13:02)
[2025-05-17] MEDS: TYLENOL 650 MG PO ×2 (13:03→17:19)
[2025-05-17] MEDS: ANCEF 5 IV ×2 (13:04→20:15)
[2025-05-17] MEDS: MIRALAX 17 GRAMS PO (13:06)
--- NOTE | 2025-05-17 13:57 | CM ---
CM following re: discharge planning.
Reviewed pt's chart, met with pt. Pt's spouse and daughter at bedside.
Pt is an 85 year old female, admitted with primary dx of Right femoral neck fracture. OR today.
Per daughter, pt is a resident of [facility], lives ay [facility], pt has 2 daughters. Per daughter, pt uses a walker at baseline, has a wheelchair. per daughter pt is forgetting to use a walker that's why she fell.
Pt's family agrees that pt will need a short term rehab and they requested [facility].
A referral to [facility] made.
PT and OT evaluations pending.
PCP: Ryan Shane
Pharmacy: [facility]
D/C plan: [facility]
CM will follow to assist pt with discharge to [facility].
[2025-05-17] MEDS: ASPIRIN 325 MG PO (17:20)
[2025-05-17] MEDS: BACTROBAN 2% OINTMENT 1 APPLIC NASAL (20:54)
[2025-05-18] VITALS (9 sets, daily range): BP systolic 127–144; BP diastolic 51–72; PULSE 68–71; O2SAT 96
[2025-05-18] MEDS: TYLENOL PO ×2 (00:46→04:57)
[2025-05-18] MEDS: SYNTHROID 75 MCG PO (05:50)
[2025-05-18 06:21] LABS: Blood Urea Nitrogen 14 mg/dl (7-17); Calcium 8.1 mg/dl (8.4-10.2); Carbon Dioxide 27 mmol/L (22-30); Chloride 109 mmol/L (98-107); Estimated Creatinine Clearance 48 ml/min; Glucose 99 mg/dl (70-99); Magnesium 2.1 mg/dl (1.6-2.3); Potassium 3.9 mmol/L (3.5-5.1); Sodium 136 mmol/L (135-145); eGFR > 60.00
[2025-05-18 06:24] LABS: Hematocrit 28.1 % (37.0-47.0); Hemoglobin 9.3 g/dL (12.0-16.0); Mean Corp Hgb Conc. 33.1 g/dL (33.0-37.0); Mean Corpuscular Volume 87.5 fL (81.0-99.0); Platelet Count 156 10^3/uL (130-400); Red Cell Dist. Width 12.5 % (11.5-14.5)
[2025-05-18] MEDS: TYLENOL 650 MG PO ×3 (07:53→17:13)
[2025-05-18] MEDS: ASPIRIN 325 MG PO (07:53)
[2025-05-18] MEDS: ZOLOFT 25 MG PO (07:54)
[2025-05-18] MEDS: BACTROBAN 2% OINTMENT 1 APPLIC NASAL (07:54)
[2025-05-18] MEDS: MIRALAX 17 GRAMS PO (07:54)
[2025-05-18] MEDS: SENOKOT PO (08:11)
[2025-05-18] MEDS: COLACE PO (08:11)
--- NOTE | 2025-05-18 08:31 | W.PN.ORTHO ---
Today's Communication / Plan
-
Appreciate the primary team, continue Tx
Dispo likely SNF, appreciate CM
Trend Hgb, pending this AM
Continue WBAT B/L LEs on walker/assistance
PT/OT, THPs x 6 weeks
ASA 325mg daily x 4 weeks for DVT ppx
Pain control, avoid narcs if possible
Dressing to remain 7-10 days
Stapes out 2 weeks (SNF or office)
If zeke out at SNF outpatient Ortho in 4 weeks
Will follow
Assessment
.
Distal Motor Intact: Yes
Dressing:
Clean, dry and intact. Mild, contained, strikethrough
Assessment:
POD#1 Right hip Michael
Calf soft, nontender
Plan
.
Surgery / Date: Right hip Michael May 16 ([place])
DVT Prophylaxis: Aspirin
Activity:
Out of bed. WBAT B/L LEs on walker
PT/OT, THPs x 6 weeks
Discharge Plan: SNF and Other (appreciate CM)
Subjective
.
.:
Patient resting comfortably. Mild pain endorsed right hip
Vital Signs and Labs
.
Vital Signs and Labs:
Lab Results
05/18/25 05:26
Temp Pulse Resp BP Pulse Ox
98.4 F 78 16 132/57 98
05/18/25 03:00 05/18/25 03:00 05/18/25 03:00 05/18/25 03:00 05/18/25 03:00
PT 13.4 Sec (11.4-14.6) 05/17/25 06:58
INR 0.99 05/17/25 06:58
--- NOTE | 2025-05-18 08:51 | W.PN.HOSP.TC ---
Today's Communication/Plan
-
possible DC to SNF later today if Hg stable (and bed available)
Assessment / Plan
Assessment / Plan
HPI: 85-year-old woman with past medical history significant for dementia, alcohol dependence in remission, vitamin B12 deficiency, hypothyroidism, hyperlipidemia, who presented to the hospital after mechanical fall resulting in severe right hip
pain. She was found to have a right displaced femoral neck fracture.
# Right femoral neck fracture status post mechanical fall
Appreciate orthopedic surgery input, status post ORIF 05/17
Pain control, PT/OT, laxatives
Continue WBAT B/L LEs on walker/assistance
ASA 325mg daily x 4 weeks for DVT ppx
Dressing to remain 7-10 days
Stapes out 2 weeks (SNF or office)
Post-Op Anemia
Acute Blood Loss Anemia
-drop in Hg overnight
-repeat ordered for later this morning
# Dementia
Mental status is at baseline
Resides at [facility]
# Hypothyroidism
Continue Synthroid
# Hyperlipidemia
Does not appear to be on statin therapy at this time
# B12 deficiency
Does not appear to be on B-12 currently, MCV 89.2, Hgb 11.8
# Anxiety/depression
Continue Sertraline
DVT proph-aspirin 325 mg daily as per orthopedic surgery
DNR/DNI confirmed with family upon admission
Updated family at bedside 05/17
Total time spent to see the patient on the floor, examine the patient, review data and lab results, discuss treatment plan with patient, nursing staff around 36 minutes.
Physical Exam
General: No acute distress
HEENT: Normocephalic, Atraumatic, EOMI, MMM
Respiratory: Clear to Auscultation bilaterally
Cardiac: Normal S1/S2, Regular Rate and Rhythm
GI: Soft, Nontender, Nondistended, Normal Bowel Sounds
Extremities: No Clubbing, Cyanosis
R hip incision dressed
Neuro: Pleasantly confused
Psych: Calm, Cooperative
Derm: Scattered ecchymosis on skin
Anticipated Discharge: Within 24 hours
Subjective/Interval History
-
Date of Service: May 18, 2025
patient confused today after working with PT
Objective Data
-
Labs:
Laboratory Results
05/18/25 05/18/25
05:26 15:00
WBC 9.4
Hgb 9.3 L D Pending
Hct 28.1 L Pending
Plt Count 156 D
Sodium 136
Potassium 3.9
Chloride 109 H
Carbon Dioxide 27
BUN 14
Creatinine 0.6
Glucose 99
Calcium 8.1 L
Vital Signs:
Vital Signs
Temp Pulse Resp BP Pulse Ox
98.2 F 79 18 139/70 98
05/18/25 07:45 05/18/25 07:45 05/18/25 07:45 05/18/25 07:45 05/18/25 07:45
I&O
05/17/25 05/18/25 05/19/25
06:59 06:59 06:59
Intake Total 560 / 560 755 / 755
Output Total 670 / 670
Balance 560 / 560 85 / 85
Review of Systems
-
History Source: Patient
All other systems: Reviewed and negative
Physical Exam
-
General: Other (appears in pain after working with PT)
HEENT: PERRLA
Respiratory: Clear to Auscultation; Negative Wheezes
Cardiac: Regular Rhythm and S1/S2
GI: Soft and Nontender
Musculoskeletal: No Edema
Neuro: AO x 3
Psych: Calm
Data Reviewed
-
Diagnostic Radiology: Report Reviewed by me
Labs: Labs Reviewed by me
--- NOTE | 2025-05-18 09:07 | CM ---
Cm reviewed medical records. CM requested acceptance updated from [facility]. CM will continue with discharge efforts.
PLAN: SNF, Pending [facility] acceptance.
--- NOTE | 2025-05-18 10:43 | CM ---
Addendum entered by Chandni Ramirez RN 05/18/25 10:55:
CM updated patient's with acceptance by [facility].
Original Note:
[facility] accepted patient for today discharge.
IBC Auth
[id number]
NRD 05/22
[facility]
REPORT
[phone]

Acute Care Authorization
[id number]
[2025-05-18 11:20] LABS: Hemoglobin 10.2 g/dL (12.0-16.0)
--- NOTE | 2025-05-18 12:00 | W.DCSUMMARY ---
Discharge Summary
Discharge Data
Date of Admission: 05/16/25
Date of Discharge: 05/18/25
-
Pending Results: No
Hospital Course
Discharging Physician : Dr. Nicole Souza
Disposition : SNF
Primary care physician : Dr. Ryan Shane
Principal Discharge diagnosis : Right femoral neck fracture status post mechanical fall
Hospital Course :
Ms. Yudy Fulton is a 85 yo woman with hx dementia, alcohol dependence in remission, hypothyroidism presents to the ER after mechanical call resulting in severe right hip pain. She was found to have a displaced femoral neck fracture. She was
admitted to medicine with Ortho consulting and is status post right hip hemiarthroplasty on 05/17/25.
She is started on Aspirin 325mg PO for DVT prophylaxis. She worked with PT and SNF recommended. Hg stable prior to discharge.
Patient had urinary retention requiring straight cath prior to discharge. She is prescribed Flomax as needed. She will be bladder scanned and straight cath'd as need at SNF. She may need escobedo catheter if persists.
Time spent on discharge was 35 minutes.
Important imaging findings :
Hip X-Ray 05/16/25
FINDINGS and IMPRESSION:
Displaced fracture of the neck of the proximal right femur is seen.
No additional recent cortical fracture is identified.
Cervical Spine CT 05/16/25
IMPRESSION:
Degenerative changes again seen throughout the cervical spine.
No findings to suggest recent cervical spine fracture.
HEAD CT
IMPRESSION:
No acute intracranial abnormality.
HIP X-RAY 05/17/25
FINDINGS/IMPRESSION: :
Postoperative changes of right hip hemiarthroplasty without evidence of immediate hardware complication. Expected postoperative changes in the adjacent soft tissues.
Procedure findings :
Discharge Plan
-
Patient Disposition: Jail/SNF
Discharge Diagnosis/Procedures: Right femoral neck fracture status post mechanical fall; status post right hip hemiarthroplasty on 05/17/25
Diet: Regular
Activity: Other activity
Additional Activity: WBAT B/L LEs on walker/assistance
Driving Restrictions: No driving
Bathing Restrictions: None
Other Services: PT and OT
Activity Restrictions/Additional Instructions:
Bill out in 2 weeks (SNF or at Ortho Clinic). Follow up at Ortho Clinic in 2-4 weeks (depending on whether or not bill removed at SNF)
Bladder scan and straight cath as needed (PVR > 400). Patient had urinary retention prior to discharge, may need escobedo if persists.
Referrals:
Garfield Gallegos MD [Active, Orthopedics] - in two to four weeks
Referral Note: If bill out at SNF, then follow up in 4 weeks
Ryan Shane Sr., MD [Family Provider, Family Practice] - in less than 1 week
Additional Discharge Medication Instructions: ASA 325mg daily x 4 weeks for DVT ppx
Take Tylenol 1 G every 8 hours x 4 days then as needed
You are prescribed low dose Oxycodone for severe pain
Take Miralax as needed for constipation
Prescriptions:
New
aspirin 325 mg Tablet
325 mg PO DAILY Qty: 28 0RF
oxycodone 5 mg Tablet
2.5 mg PO Q4HPRN PRN (Reason: severe pain) Qty: 10 0RF
polyethylene glycol 3350 17 gram Powder In Packet
17 g PO DAILY PRN (Reason: constipation) Qty: 30 0RF
acetaminophen [Tylenol Extra Strength] 500 mg tablet
1,000 mg PO TID Qty: 12 0RF
Rx Instructions:
Take every 8 hours x 4 days then as needed
tamsulosin 0.4 mg Capsule
0.4 mg PO DAILYPRN PRN (Reason: bladder scan volume > 400 mL) Qty: 30 0RF
Continued
cholecalciferol (vitamin D3) 1,000 UNITS tablet
1,000 units PO DAILY
sertraline 25 mg tablet
25 mg PO DAILY
Changed
levothyroxine 75 MCG tablet
75 mcg PO DAILY@0600 Qty: 0 0RF
Discharge Orders:
Discharge Patient (As Directed); Ordered 05/18/25
Ordered By: Nicole Souza
Discharge Date and Time
Print Language: MALAY
[2025-05-18] MEDS: FLOMAX 0.4 MG PO (14:03)
--- NOTE | 2025-05-18 16:20 | W.DS.TRANS ---
DC Summary - [employer]
-
Discharge Instructions:
Discharge Diagnosis/Procedures Right femoral neck fracture status post
mechanical fall; status post right hip
hemiarthroplasty on 05/17/25
Diet Regular
Activity Other activity
Additional Activity WBAT B/L LEs on walker/assistance
Driving Restrictions No driving
Bathing Restrictions None
Other Services PT,OT
Instructions:
Stand-Alone Forms:
Changes to Home Medications: Yes
Discharge Medications:
DC Medications w/original date entered in [employer]
cholecalciferol (vitamin D3) 25 mcg (1,000 unit) tablet 1,000 units PO DAILY 07/23/21
sertraline 25 mg PO DAILY 05/17/25
acetaminophen 500 mg tablet (Tylenol Extra Strength) 1,000 mg (2 x 500 mg) PO TID #12 tabs 05/18/25
aspirin 325 mg tablet 325 mg PO DAILY #28 tabs 05/18/25
levothyroxine 75 mcg tablet 75 mcg PO DAILY@0600 #0 tabs 05/18/25
oxycodone 5 mg tablet 2.5 mg (1/2 x 5 mg) PO Q4HPRN PRN severe pain #10 tabs 05/18/25
polyethylene glycol 3350 17 gram oral powder packet 17 g PO DAILY PRN constipation #30 ea 05/18/25
tamsulosin 0.4 mg capsule 0.4 mg PO DAILYPRN PRN bladder scan volume > 400 mL #30 caps 05/18/25
Home Medication Changes
ASA 325mg daily x 4 weeks for DVT ppx
Take Tylenol 1 G every 8 hours x 4 days then as needed
You are prescribed low dose Oxycodone for severe pain
Take Miralax as needed for constipation
Pending Results: No
--- NOTE | 2025-05-18 16:28 | W.DS.TRANS ---
DC Summary - [employer]
-
Discharge Instructions:
Discharge Diagnosis/Procedures Right femoral neck fracture status post
mechanical fall; status post right hip
hemiarthroplasty on 05/17/25
Diet Regular
Activity Other activity
Additional Activity WBAT B/L LEs on walker/assistance
Driving Restrictions No driving
Bathing Restrictions None
Other Services PT,OT
Instructions:
Stand-Alone Forms:
Changes to Home Medications: Yes
Discharge Medications:
DC Medications w/original date entered in [employer]
cholecalciferol (vitamin D3) 25 mcg (1,000 unit) tablet 1,000 units PO DAILY 07/23/21
sertraline 25 mg PO DAILY 05/17/25
acetaminophen 500 mg tablet (Tylenol Extra Strength) 1,000 mg (2 x 500 mg) PO TID #12 tabs 05/18/25
aspirin 325 mg tablet 325 mg PO DAILY #28 tabs 05/18/25
levothyroxine 75 mcg tablet 75 mcg PO DAILY@0600 #0 tabs 05/18/25
oxycodone 5 mg tablet 2.5 mg (1/2 x 5 mg) PO Q4HPRN PRN severe pain #10 tabs 05/18/25
polyethylene glycol 3350 17 gram oral powder packet 17 g PO DAILY PRN constipation #30 ea 05/18/25
tamsulosin 0.4 mg capsule 0.4 mg PO DAILYPRN PRN bladder scan volume > 400 mL #30 caps 05/18/25
Home Medication Changes
ASA 325mg daily x 4 weeks for DVT ppx
Take Tylenol 1 G every 8 hours x 4 days then as needed
You are prescribed low dose Oxycodone for severe pain
Take Miralax as needed for constipation
Pending Results: No
== END 2025-05-18 20:25 | DRG 522 ==
LOC: 2 SOUTH 21:53
PROVIDERS: Family Medicine; Physician Assistant Medical; ADMITTING PHYSICIAN Internal Medicine; ATTENDING PHYSICIAN Student in an Organized Health Care Education/Training Program; CONSULT PHYSICIAN Specialist; EMERGENCY PHYSICIAN Student in an Organized Health Care Education/Training Program; FAMILY PHYSICIAN Family Medicine
PROC: 0SR90J9 Replacement of Right Hip Joint with Synthetic Substitute, Cemented, Open Approach (ICD-10-PCS; 2025-05-17)
DX: S72.001A Fracture of unspecified part of neck of right femur, initial encounter for closed fracture (principal); D62 Acute posthemorrhagic anemia; E53.8 Deficiency of other specified B group vitamins; E03.9 Hypothyroidism, unspecified; F03.B0 Unspecified dementia, moderate, without behavioral disturbance, psychotic disturbance, mood disturbance, and anxiety; F10.21 Alcohol dependence, in remission; R33.9 Retention of urine, unspecified; Z90.710 Acquired absence of both cervix and uterus; Z88.0 Allergy status to penicillin; Z91.041 Radiographic dye allergy status; Z79.890 Hormone replacement therapy; Z66 Do not resuscitate; W01.0XXA Fall on same level from slipping, tripping and stumbling without subsequent striking against object, initial encounter; Y93.01 Activity, walking, marching and hiking; E78.00 Pure hypercholesterolemia, unspecified; F41.9 Anxiety disorder, unspecified; F32.A Depression, unspecified
CPT/HCPCS: 70450; 72125; 73502; 80048; 80053; 83735; 85018; 85025; 85027; 85610; 87070; 93005; 96374; 97110; 97163; 97167; 97530; 99285; C1713; C1776

== ENCOUNTER → 2025-05-21 10:40 | Outpatient (REF) | payer OTHER, SELFPAY ==
[2025-05-21 10:55] LABS: Hematocrit 28.8 % (37.0-47.0); Hemoglobin 9.4 g/dL (12.0-16.0); Mean Corp Hgb Conc. 32.6 g/dL (33.0-37.0); Mean Corpuscular Volume 88.3 fL (81.0-99.0); Nucleated Red Blood Cells % 0 %; Platelet Count 181 10^3/uL (130-400); Red Cell Dist. Width 12.4 % (11.5-14.5)
[2025-05-21 11:06] LABS: Blood Urea Nitrogen 21 mg/dl (7-17); Calcium 8.6 mg/dl (8.4-10.2); Carbon Dioxide 28 mmol/L (22-30); Chloride 107 mmol/L (98-107); Glucose 110 mg/dl (70-99); Potassium 3.4 mmol/L (3.5-5.1); Sodium 139 mmol/L (135-145); eGFR > 60.00
== END ==
LOC: OLABP 10:40
PROVIDERS: ATTENDING PHYSICIAN Family Medicine
DX: S72.001D Fracture of unspecified part of neck of right femur, subsequent encounter for closed fracture with routine healing (principal); W19.XXXD Unspecified fall, subsequent encounter; F03.90 Unspecified dementia, unspecified severity, without behavioral disturbance, psychotic disturbance, mood disturbance, and anxiety; D64.9 Anemia, unspecified; E78.5 Hyperlipidemia, unspecified
CPT/HCPCS: 36415; 80048; 85025

== ENCOUNTER → 2025-05-25 11:14 | Outpatient (REF) | payer OTHER, SELFPAY ==
[2025-05-25 12:51] LABS: Hematocrit 31.4 % (37.0-47.0); Hemoglobin 10.1 g/dL (12.0-16.0); Mean Corp Hgb Conc. 32.2 g/dL (33.0-37.0); Mean Corpuscular Volume 90.2 fL (81.0-99.0); Nucleated Red Blood Cells % 0 %; Platelet Count 250 10^3/uL (130-400); Red Cell Dist. Width 13.1 % (11.5-14.5)
[2025-05-25 12:56] LABS: Blood Urea Nitrogen 15 mg/dl (7-17); Calcium 8.5 mg/dl (8.4-10.2); Carbon Dioxide 27 mmol/L (22-30); Chloride 106 mmol/L (98-107); Glucose 106 mg/dl (70-99); Potassium 3.7 mmol/L (3.5-5.1); Sodium 141 mmol/L (135-145); eGFR > 60.00
== END ==
LOC: OLABP 11:14
PROVIDERS: ATTENDING PHYSICIAN Family Medicine
DX: E78.5 Hyperlipidemia, unspecified (principal); F32.A Depression, unspecified; F41.9 Anxiety disorder, unspecified; W19.XXXD Unspecified fall, subsequent encounter; S72.001D Fracture of unspecified part of neck of right femur, subsequent encounter for closed fracture with routine healing; F03.90 Unspecified dementia, unspecified severity, without behavioral disturbance, psychotic disturbance, mood disturbance, and anxiety; D64.9 Anemia, unspecified; D51.9 Vitamin B12 deficiency anemia, unspecified
CPT/HCPCS: 36415; 80048; 85025